=== PATIENT | male | born 1965 | race Caucasian/White ===

== ENCOUNTER 2023-08-21 12:27 | Inpatient (IN) | payer OTHER ==
[~2023-08-21] VITALS: Ht 172.7 cm; Wt 107.8 kg
[2023-08-21] MEDS ORDERED: ASPI81CH PO (14:31)
[2023-08-21] MEDS ORDERED: OMEP20ER PO (14:31)
[2023-08-21] MEDS ORDERED: ATOR40TA PO (14:31)
[2023-08-21] MEDS ORDERED: TRULICITY0.75 MG/01 SC (14:32)
[2023-08-21 14:51] LABS: Influenza A, PCR NEGATIVE (NEGATIVE); Influenza B, PCR NEGATIVE (NEGATIVE); Resp Syncytial Virus, PCR NEGATIVE (NEGATIVE); SARS-Cov-2 (COVID-19) PCR, MMC NEGATIVE (NEGATIVE)
[2023-08-21 17:46] LABS: Base Excess Venous 2.1 mmol/L; Bicarbonate Venous 26.4 mmol/L (24.0-30.0); PCO2 Venous 37.4 mmHg (38-42); pH Blood Venous 7.45 (7.34-7.37)
[2023-08-21 22:07] VITALS: BP 152/107
[2023-08-21 23:50] VITALS: BP 144/99
[2023-08-22 05:08] VITALS: BP 114/70
--- NOTE | 2023-08-22 05:49 | NUR ---
SHIFT SUMMARY ADMITTED FROM ED. A/OX4 LIVES ALONE. ADMITTING DIAGNOSIS OF PNA. HACKING/CONGESTED COUGH, SPUTUM CULTURE TO BE COLLECTED. ON 3L NC, USUALLY ROOM AIR AT HOME. DESATS TO LOW 80'S ON ROOM AIR. PT CAME TO FLOOR PRETTY LETHARGIC. WAS AROUSABLE BUT NEEDED TO BE WOKEN UP OFTEN TO ANSWER ADMISSION QUESTIONS. PT UNAWARE OF DOSING OF HOME TRULICITY. INDEPENDENT IN ROOM. CONTINUOU SPULSE OX MONITORING. RESP THERAPY BREATHING TX. UNSUCCESSFUL IN IV INSERTION, ANOTHER NURSE FROM PCU ATTEMPTED WELL AND WAS UNSUCCESSFUL. CHARGE NURSE AWARE AND STATES WILL HAVE DAY SHIFT RN ATTEMPT ULTRASOUND GUIDED. NOTHING IV IS DUE TO BE GIVEN AT THIS TIME. SKIN INTACT. NONSKID SOCKS, BED LOCKEED IN LOW POSITION, CALL LIGHT IN REACH
[2023-08-22 07:18] VITALS: BP 141/76
[2023-08-22 13:26] LABS: BASOPHILS ABSOLUTE AUTO 0.08 K/mm3 (0.00-0.23); BASOPHILS PERCENT AUTO 0 % (0-2); EOSINOPHILS ABSOLUTE AUTO 0.03 K/mm3 (0.00-0.68); EOSINOPHILS PERCENT AUTO 0 % (0-6); Hematocrit 37.4 % (37.0-53.0); Hemoglobin 12.7 g/dL (13.5-17.5); IMMATURE GRAN ABSOLUTE AUTO 0.11 K/mm3 (0.00-0.10); IMMATURE GRAN PERCENT AUTO 1 % (0-1); LYMPHOCYTES PERCENT AUTO 12 % (21-46); MONOCYTES PERCENT AUTO 12 % (4-13); Mean Corpuscular HGB 29.3 pg (26.0-34.0); Mean Corpuscular Volume 86 fL (80-100); Mean Platelet Volume 9.4 fL (9.1-12.4); NEUTROPHILS ABSOLUTE AUTO 15.54 K/mm3 (1.96-9.15); NEUTROPHILS PERCENT AUTO 75 % (41-73); Platelet Count 412 K/mm3 (150-400); RDW Coefficient Variation 13.1 % (11.7-14.2); RDW Standard Deviation 41.3 fL (35.1-46.3); Red Blood Cell Count 4.33 M/mm3 (4.30-5.90); White Blood Cell Count 20.76 K/mm3 (4.00-11.30)
[2023-08-22 13:52] LABS: Albumin, Blood 2.7 g/dL (3.4-5.0); Albumin/Globulin Ratio 0.6 (0.8-1.8); Bilirubin, Total 0.3 mg/dL (0.1-1.0); Bun/Creatinine Ratio 25.8 (12.0-20.0); Creatinine, Blood 0.66 mg/dL (0.60-1.20); Globulin, Blood 4.6 g/dL (2.2-4.0); Magnesium, Blood 2.2 mg/dL (1.6-2.4); Total Protein, Blood 7.3 g/dL (6.4-8.2)
[2023-08-22 14:42] VITALS: BP 157/103
--- NOTE | 2023-08-22 18:18 | NUR ---
SHIFT SUMMARY: PT A&O X4. PT VERY IRRITABLE AND ANGRY WITH STAFF. WHEN ATTEMPTING ANY CARE PT BECOMES UNCOOPERATIVE AND IRRITABLE YELLING AND CURSING AT STAFF. IV PLACED IN RAC THIS AM BY [employer] SOFTWARE ENGINEER. PT CHANGED FROM PRN TO AC/HS BLOOD SUGARS. NS INFUSING @100/HR. TOLERATING IV ABX. REMAINS ON 3L NC. CONT BIOX IN PLACE. CONTINUES TO HAVE HARSH, PRODUCTIVE COUGH. CALL LIGHT IN REACH. ABX INFUSING. BED IN LOWEST POSITION.
[2023-08-22 20:18] VITALS: BP 157/94
[2023-08-23 04:39] VITALS: BP 156/89
--- NOTE | 2023-08-23 07:14 | NUR ---
SHIFT SUMMARY A/OX4. IRRITABLE/ANGRY WITH STAFF BUT COOPERATIVE. DECREASED O2 TO 1L NC OVERNIGHT AND HES SATTING 94% ON CONT PULSE OX. DRY HACKING COUGH. IV FLUIDS INFUSING. CONTINENT. PENDING LABS THIS MORNING STILL, PATIENT REFUSED TO BE POKED TWICE. DOES NOT CALL APPROPRIATELY, INDEPENDENT AND WILL GET UP TO USE BATHROOM WITHOUT BEING DISCONNECTED FROM IV. CALL LIGHT IN REACH. BED LOCKED IN LOW POSITION.
[2023-08-23 10:30] LABS: Base Excess Venous 3.2 mmol/L; Bicarbonate Venous 27.2 mmol/L (24.0-30.0); PCO2 Venous 37.4 mmHg (38-42); pH Blood Venous 7.47 (7.34-7.37)
[2023-08-23 10:36] LABS: BASOPHILS ABSOLUTE AUTO 0.08 K/mm3 (0.00-0.23); BASOPHILS PERCENT AUTO 1 % (0-2); EOSINOPHILS ABSOLUTE AUTO 0.07 K/mm3 (0.00-0.68); EOSINOPHILS PERCENT AUTO 0 % (0-6); Hematocrit 37.4 % (37.0-53.0); Hemoglobin 12.3 g/dL (13.5-17.5); IMMATURE GRAN ABSOLUTE AUTO 0.07 K/mm3 (0.00-0.10); IMMATURE GRAN PERCENT AUTO 0 % (0-1); LYMPHOCYTES ABSOLUTE AUTO 2.88 K/mm3 (0.84-5.20); LYMPHOCYTES PERCENT AUTO 17 % (21-46); MONOCYTES ABSOLUTE AUTO 1.84 K/mm3 (0.16-1.47); MONOCYTES PERCENT AUTO 11 % (4-13); Mean Corpuscular HGB 28.7 pg (26.0-34.0); Mean Corpuscular HGB Conc 32.9 g/dL (31.5-36.5); Mean Corpuscular Volume 87 fL (80-100); Mean Platelet Volume 9.2 fL (9.1-12.4); NEUTROPHILS ABSOLUTE AUTO 12.48 K/mm3 (1.96-9.15); NEUTROPHILS PERCENT AUTO 72 % (41-73); Platelet Count 409 K/mm3 (150-400); RDW Coefficient Variation 13.2 % (11.7-14.2); RDW Standard Deviation 42.4 fL (35.1-46.3); Red Blood Cell Count 4.28 M/mm3 (4.30-5.90); White Blood Cell Count 17.42 K/mm3 (4.00-11.30)
[2023-08-23 10:49] LABS: Bun/Creatinine Ratio 22.5 (12.0-20.0); Calcium, Blood 8.8 mg/dL (8.5-10.1); Creatinine, Blood 0.67 mg/dL (0.60-1.20); Potassium, Blood 3.9 mmol/L (3.5-5.5)
--- NOTE | 2023-08-23 18:36 | NUR ---
SHIFT SUMMARY: PT A&O X4. MUCH MORE PLEASANT THIS SHIFT THAN PREVIOUS. PT RECEIVING IV ABX TOLERATING WELL. FLUIDS D/C. CHEST X-RAY AND CT COMPLETED THIS SHIFT. RESULTS OF EXAMS IN IMAGING. PT RECEIVING NEB TREATMENTS AND REMAINS ON 3L 02. STEROIDS CHANGED TO IV STARTED THIS EVENING. CONT BIOX IN PLACE. CALL LIGHT IN REACH. BED IN LOWEST POSITION.
[2023-08-23 19:19] VITALS: BP 161/91
--- NOTE | 2023-08-24 04:28 | NUR ---
SHIFT SUMMARY A/OX4. ON 3L NC BUT SATTING 98% DECREASED TO 2L NC. NONPRODUCTIVE COUGH, IV STEROID GIVEN. INDEPENDENT TO BATHROOM. CALL LIGHT IN REACH. BED LOCKED IN LOW POSITION. SHIFT UNREMARKABLE
[2023-08-24 04:54] VITALS: BP 159/97
[2023-08-24 05:31] LABS: BASOPHILS ABSOLUTE AUTO 0.02 K/mm3 (0.00-0.23); BASOPHILS PERCENT AUTO 0 % (0-2); EOSINOPHILS ABSOLUTE AUTO 0.01 K/mm3 (0.00-0.68); EOSINOPHILS PERCENT AUTO 0 % (0-6); Hematocrit 36.7 % (37.0-53.0); Hemoglobin 12.2 g/dL (13.5-17.5); IMMATURE GRAN ABSOLUTE AUTO 0.05 K/mm3 (0.00-0.10); IMMATURE GRAN PERCENT AUTO 0 % (0-1); LYMPHOCYTES ABSOLUTE AUTO 1.55 K/mm3 (0.84-5.20); LYMPHOCYTES PERCENT AUTO 12 % (21-46); MONOCYTES ABSOLUTE AUTO 0.86 K/mm3 (0.16-1.47); MONOCYTES PERCENT AUTO 7 % (4-13); Mean Corpuscular HGB 28.5 pg (26.0-34.0); Mean Corpuscular HGB Conc 33.2 g/dL (31.5-36.5); Mean Corpuscular Volume 86 fL (80-100); Mean Platelet Volume 9.5 fL (9.1-12.4); NEUTROPHILS ABSOLUTE AUTO 10.75 K/mm3 (1.96-9.15); NEUTROPHILS PERCENT AUTO 81 % (41-73); Platelet Count 453 K/mm3 (150-400); RDW Coefficient Variation 12.7 % (11.7-14.2); RDW Standard Deviation 39.8 fL (35.1-46.3); Red Blood Cell Count 4.28 M/mm3 (4.30-5.90); White Blood Cell Count 13.24 K/mm3 (4.00-11.30)
[2023-08-24 06:09] LABS: Calcium, Blood 9.2 mg/dL (8.5-10.1); Creatinine, Blood 0.65 mg/dL (0.60-1.20); Potassium, Blood 4.1 mmol/L (3.5-5.5)
[2023-08-24 07:48] VITALS: BP 139/77
[2023-08-24 16:59] VITALS: BP 157/89
[2023-08-24 19:28] VITALS: BP 159/91
--- NOTE | 2023-08-24 20:04 | NUR ---
SHIFT SUMMARY: PT A&O X4. PT REQUESTED NEB TREATMENT AROUND 1325 D/T SOB. REMAINS ON 2-3L BUT CONTINUES TO PULL AT LINES AND NOT KEEP NC ON. PT PULLED IV THIS SHIFT. NEW IV ATTEMPTED. POTENTIAL POWERGLIDE TO BE PLACED BY [employer] SUPERINTENDENT COILER. NO OTHER ACUTE CHANGES THIS SHIFT. CALL LIGHT IN REACH. REPORT GIVEN TO ONCOMING RN.
[2023-08-25 06:39] LABS: Hematocrit 37.5 % (37.0-53.0); Hemoglobin 12.6 g/dL (13.5-17.5); Mean Corpuscular HGB 28.8 pg (26.0-34.0); Mean Corpuscular HGB Conc 33.6 g/dL (31.5-36.5); Mean Corpuscular Volume 86 fL (80-100); Mean Platelet Volume 9.3 fL (9.1-12.4); Platelet Count 463 K/mm3 (150-400); RDW Coefficient Variation 12.9 % (11.7-14.2); RDW Standard Deviation 40.1 fL (35.1-46.3); Red Blood Cell Count 4.38 M/mm3 (4.30-5.90); White Blood Cell Count 13.17 K/mm3 (4.00-11.30)
[2023-08-25 07:01] LABS: Bun/Creatinine Ratio 25.3 (12.0-20.0); Creatinine, Blood 0.75 mg/dL (0.60-1.20); Potassium, Blood 3.9 mmol/L (3.5-5.5)
[2023-08-25 07:34] VITALS: BP 166/103
[2023-08-25 14:27] VITALS: BP 155/80
--- NOTE | 2023-08-25 18:05 | NUR ---
PT IS A/OX4, COOPERATIVE, IRRIATABLE AT TIMES, THE PT SLEPT PRETTY MUCH T/O THE DAY, PTS O2 WAS ON AND OFF AT TIMES HIS SAT'S DROPPED INTO THE LOW 80'S THE PT ALLOWED FOR OXYGEN TO BE REAPPLIED AT 2L/MIN, SAT'S QUICKLY RETURNED TO THE MID 90'S. CALL LIGHT IN REACH. BED IN THE LOW POSITION. PT IS UP IND
[2023-08-25 20:12] VITALS: BP 133/65
--- NOTE | 2023-08-26 04:33 | NUR ---
END OF SHIFT SUMMARY PT WANTED TO BE LEFT ALONE, REFUSED NURSING ASSESSMENT. PT COMPLIANT WITH SCHEDULED MEDICATIONS, PT STILL HAS IV SALINE LOCKED TO HIS RIGHT FA. CBG WAS 321. PROCALCITONIN LEVEL ELEVATED AT 0.10 NG/mL. PRN XANAX GIVEN AND EFFECTIVE. PT ON RA, VSS, AFEBRILE. PT SLEPT WELL THROUGHOUT THE NIGHT. PT BECAME IRRITATED WHEN CONTINUOUS PULSE OX KEPT BEEPING WHEN HIS OXYGEN SAT DROPPED. PT ENCOURAGED TO TAKE DEEP BREATHS. PT UP AD [place], INDEPENDENT WITH ADL s, CONTINENT OF B&B. PT ABLE TO MAKE NEEDS KNOWN. CALL LIGHT WITHIN REACH, WCTM.
[2023-08-26 04:48] VITALS: BP 158/100
[2023-08-26 07:35] VITALS: BP 177/95
[2023-08-26 15:37] VITALS: BP 153/93
[2023-08-26 20:31] VITALS: BP 136/89
--- NOTE | 2023-08-27 04:05 | NUR ---
SHIFT SUMMARY NO ACUTE CHANGES TO REPORT OVERNIGHT, PT HAS RESTED MOST OF THE NIGHT. PT UNABLE TO WEAN FROM O2 OVERNIGHT AND SATS WOULD DROP INTO THE UPPER 80'S WHILE SLEEPING. PT IS ON 2L O2 AND MAINTAINS SATS IN THE 90'S. BREATHING TREATMENTS PER RT. LUNGS WITH EXP WHEEZES. PT INDEPENDENT IN THE ROOM. VITALS STABLE, PLAN IS FOR POSSIBLE DC TODAY.
[2023-08-27 04:27] VITALS: BP 144/92
[2023-08-27 07:39] VITALS: BP 135/82
[2023-08-27] MEDS ORDERED: MUCINEX600 MG PO (12:20)
[2023-08-27] MEDS ORDERED: ASMANEX HFA13 G6 INH (12:22)
[2023-08-27] MEDS ORDERED: PRED20 PO (12:23)
[2023-08-27] MEDS ORDERED: ALBU90OI INH (12:24)
[2023-08-27] MEDS ORDERED: DOXY100 PO (12:24)
[2023-08-27] MEDS ORDERED: TIOT18 INH (12:26)
--- NOTE | 2023-08-27 15:35 | NUR ---
DISCHARGE NOTE PT DISCHARGED TO HOME, PICKED UP BY HIS BROTHER DOWNSTAIRS. IV REMOVED. DISCHARGE INFORMATION AND EDUCATIN PROVIDED. MEDICATIONS FAXED TO THE PHARMACY OF HIS CHOICE. PERSONAL BELONGINGS RETURNED.
== END 2023-08-27 14:57 | disposition home or self-care (01) | DRG 871 ==
LOC: ER 12:27 → MEDS 12:28
PROVIDERS: Internal Medicine; Student in an Organized Health Care Education/Training Program; ADMIT Student in an Organized Health Care Education/Training Program
DX: A41.9 Sepsis, unspecified organism (principal); J18.9 Pneumonia, unspecified organism; J96.01 Acute respiratory failure with hypoxia; J44.1 Chronic obstructive pulmonary disease with (acute) exacerbation; J44.0 Chronic obstructive pulmonary disease with (acute) lower respiratory infection; E87.3 Alkalosis; E11.9 Type 2 diabetes mellitus without complications; K76.89 Other specified diseases of liver; E86.0 Dehydration; E78.5 Hyperlipidemia, unspecified; K21.9 Gastro-esophageal reflux disease without esophagitis; Z79.899 Other long term (current) drug therapy; Z79.82 Long term (current) use of aspirin; Z11.52 Encounter for screening for COVID-19
CPT/HCPCS: 0241U; 36415; 71045; 71260; 80048; 80053; 82803; 82947; 83605; 83735; 84145; 85025; 85027; 87040; 87449; 93005; 93010; 94640; 94664; 94760; 94761; 94762; 96365; 96366; 96367; 96372; 99285-25; A9270; G0378; J0456; J0696; J1650; J2930; J7030; J7050; J7512; Q9967

== ENCOUNTER → 2023-08-21 | Outpatient (CLI) | payer SELFPAY ==
[~2023-08-21] MED LIST: ASPI81CH PO; ATOR40TA PO; OMEP20ER PO; TRULICITY0.75 MG/01
[2023-08-21 11:57] LABS: BASOPHILS ABSOLUTE AUTO 0.11 K/mm3 (0.00-0.23); BASOPHILS PERCENT AUTO 1 % (0-2); EOSINOPHILS ABSOLUTE AUTO 0.01 K/mm3 (0.00-0.68); EOSINOPHILS PERCENT AUTO 0 % (0-6); Hematocrit 40.9 % (37.0-53.0); IMMATURE GRAN ABSOLUTE AUTO 0.17 K/mm3 (0.00-0.10); IMMATURE GRAN PERCENT AUTO 1 % (0-1); LYMPHOCYTES ABSOLUTE AUTO 2.46 K/mm3 (0.84-5.20); LYMPHOCYTES PERCENT AUTO 10 % (21-46); MONOCYTES ABSOLUTE AUTO 3.56 K/mm3 (0.16-1.47); MONOCYTES PERCENT AUTO 15 % (4-13); Mean Corpuscular HGB 29.4 pg (26.0-34.0); Mean Corpuscular HGB Conc 34.2 g/dL (31.5-36.5); Mean Corpuscular Volume 86 fL (80-100); NEUTROPHILS ABSOLUTE AUTO 18.12 K/mm3 (1.96-9.15); NEUTROPHILS PERCENT AUTO 74 % (41-73); Platelet Count 401 K/mm3 (150-400); RDW Coefficient Variation 12.8 % (11.7-14.2); RDW Standard Deviation 40.1 fL (35.1-46.3); Red Blood Cell Count 4.77 M/mm3 (4.30-5.90); White Blood Cell Count 24.43 K/mm3 (4.00-11.30)
[2023-08-21 12:06] LABS: Albumin, Blood 3.3 g/dL (3.4-5.0); Albumin/Globulin Ratio 0.7 (0.8-1.8); Bilirubin, Total 0.8 mg/dL (0.1-1.0); Bun/Creatinine Ratio 11.5 (12.0-20.0); Calcium, Blood 8.9 mg/dL (8.5-10.1); Creatinine, Blood 0.87 mg/dL (0.60-1.20); Globulin, Blood 4.6 g/dL (2.2-4.0); Potassium, Blood 4.1 mmol/L (3.5-5.5); Total Protein, Blood 7.9 g/dL (6.4-8.2)
== END | disposition home or self-care (01) ==
LOC: LAB SHORT 11:52 → LAB 11:52
PROVIDERS: Emergency Medicine
DX: R00.0 Tachycardia, unspecified (principal)
CPT/HCPCS: 80053; 85025

== ENCOUNTER → 2023-08-21 | Outpatient (CLI) | payer OTHER ==
[~2023-08-21] MED LIST changes: +ALBU90OI INH; +ASMANEX HFA13 G6 INH; +DOXY100 PO; +MUCINEX600 MG PO; +PRED20 PO; +TIOT18 INH; -TRULICITY0.75 MG/01; +TRULICITY0.75 MG/01 SC
== END | disposition home or self-care (01) ==
LOC: LAB 11:45 → LAB SHORT 11:45
DX: R00.0 Tachycardia, unspecified (principal)
CPT/HCPCS: 87040